=== PATIENT | male | born 1975 | race Two or more races ===

== ENCOUNTER 2017-05-16 14:01 | Emergency (ER) | payer SELFPAY ==
[~2017-05-16] VITALS: Ht 167.6 cm; Wt 65.8 kg
--- NOTE | 2017-05-16 14:09 | NUR ---
RIGHT SHOULDER/CLAVICLE PAIN S/P INJURY DUSIRNG SOCCER GAME TODAY
[2017-05-16] MEDS ORDERED: IBUPROFEN 400 MG TABLET ONE (14:26)
[2017-05-16] MEDS: IBUPROFEN 400 MG TABLET PO ONE ×2 (14:27→14:30)
--- NOTE | 2017-05-16 14:33 | NUR ---
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
--- NOTE | 2017-05-16 14:48 | NUR ---
BACK FROM XRAY
--- NOTE | 2017-05-16 15:30 | NUR ---
Crutches dispensed and gait training provided. Pt demonstrates approproiate use of crutches
[2017-05-16 15:31] VITALS: BP 125/79
--- NOTE | 2017-05-16 15:31 | NUR ---
Patient discharged to home in stable condition. Written and verbal after care instructions given. Patient verbalizes understanding of instruction.
== END 2017-05-16 15:43 | disposition home or self-care (01) ==
LOC: ER 14:05
DX: S42.021A Displaced fracture of shaft of right clavicle, initial encounter for closed fracture (principal); S09.8XXA Other specified injuries of head, initial encounter; F17.200 Nicotine dependence, unspecified, uncomplicated; W50.1XXA Accidental kick by another person, initial encounter; Y93.66 Activity, soccer; Y92.89 Other specified places as the place of occurrence of the external cause; Y99.8 Other external cause status
CPT/HCPCS: 70450; 71045; 73000; 73030; 99284; 99406; A4606; Z7610